=== PATIENT | female | born 1930 | race Caucasian/White ===

== ENCOUNTER → 2016-10-03 | Outpatient (CLI) | payer MEDICARE, BC ==
[~2016-10-03] MED LIST: ACET-2723 PO; ALBU8.5H INH; AMLO1CAP68 PO; ASPI-558 PO; BUDE10.2 INH; CALC-5 PO; LEVO50TA72 PO; PHEN-779 PO; SIMV20TA89 PO; VIT1CAPS31 PO; [UNRECOGNIZED DRUG - CODE] BOTH EYES
[2016-10-03 12:27] LABS: PROBNP 421 PG/ML (0-175)
== END ==
LOC: LABN 11:58
PROVIDERS: ATTEND Nurse Practitioner Family
DX: R07.9 Chest pain, unspecified (principal)
CPT/HCPCS: 83880; 84484